=== PATIENT | female | born 2000 | race Caucasian/White ===

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

== ENCOUNTER 2019-03-01 12:14 | Emergency (ER) | payer OTHER ==
[~2019-03-01] VITALS: Wt 67.7 kg
[~2019-03-01 12:14] MED LIST changes: +ALBU8.5H8 INH; +AZIT250T13 PO; +BENZ-6 PO; +NAPR-985 PO
[2019-03-01 12:24] VITALS: Wt 67.7 kg
== END 2019-03-01 14:08 | disposition home or self-care (01) ==
LOC: FTE 12:14
DX: M25.561 Pain in right knee (principal)
CPT/HCPCS: 73562; Z7502